=== PATIENT | male | born 1995 | race Two or more races ===

== ENCOUNTER 2020-08-29 07:41 | Emergency (ER) | payer MEDICAID ==
[~2020-08-29] VITALS: Ht 172.7 cm; Wt 70.0 kg
[2020-08-29 10:09] LABS: BASOPHILS % 0.2 % (0.0-2.0); EOSINOPHILS % 1.7 % (0.0-5.0); HEMATOCRIT. 33.8 % (42.0-52.0); HEMOGLOBIN. 11.2 g/dL (14.0-18.0); LYMPHOCYTES % 7.6 % (20.0-50.0); MEAN CORPUSCULAR HEMOGLOBIN 27.9 pg (28.0-32.0); MEAN CORPUSCULAR VOLUME 84.3 fL (80.0-94.0); MEAN PLATELET VOLUME 6.4 fl (7.4-10.4); MONOCYTES % 4.8 % (2.0-8.0); NEUTROPHILS % 85.7 % (40.0-76.0); PLATELET 669 x1000/uL (130-400); RED CELL DISTRIBUTION WIDTH 16.7 % (11.6-14.6)
[2020-08-29 10:18] LABS: CHLORIDE 95 mEq/L (98-107)
[2020-08-29 10:27] LABS: CREATINE KINASE 45 IU/L (39-308)
[2020-08-29] MEDS ORDERED: PIPERACILLIN/TAZ 3.375G PREMIX 50 ML IV ONE (10:45)
[2020-08-29] MEDS ORDERED: LEVETIRACETAM 500MG TABLET PO ONE (10:45)
[2020-08-29] MEDS ORDERED: IPRATROPIUM/ALBUTEROL 0.5-3(2.5)MG/3ML NEB HHN ONE (10:45)
[2020-08-29] MEDS ORDERED: SODIUM CHLORIDE 0.9% 500 ML IV ONE (12:30)
[2020-08-29 13:40] VITALS: BP 97/54
== END 2020-08-29 13:45 | disposition left against medical advice (07) ==
LOC: ER 07:51 → CANBEDREQ 13:45 → ER 13:45
DX: R56.9 Unspecified convulsions (principal); R09.02 Hypoxemia; E84.9 Cystic fibrosis, unspecified; K86.81 Exocrine pancreatic insufficiency; Z20.828 Contact with and (suspected) exposure to other viral communicable diseases
CPT/HCPCS: 36415; 71045; 80053; 82550; 82962; 83605; 85025; 87426; 96365; 99284; J2543; J7040; Z7610; 94640

== ENCOUNTER 2021-07-08 20:55 | Inpatient (IN) | payer MEDICAID, OTHER ==
[~2021-07-08] VITALS: Ht 153.9 cm; Wt 52.3 kg
[~2021-07-08 20:55] MED LIST: ALBU2.5V13 NEB; AMYL1CAP61 MT; AMYL1CAP61 PO; SODI4VIA IH
[2021-07-08] MEDS ORDERED: METHYLPREDNISOLONE SOD SUCC 125 MG/2 ML VIAL IV STA (21:25)
[2021-07-08] MEDS ORDERED: IPRATROPIUM BROMIDE (0.02%) 0.5MG/2.5ML NEB HHN STA (21:25)
[2021-07-08] MEDS ORDERED: SODIUM CHLORIDE 0.9% 1,000 ML IV ONE ×2 (21:30)
[2021-07-08] MEDS ORDERED: MAGNESIUM 2 G PREMIX 50 ML IV ONE (21:30)
[2021-07-08] MEDS: ALBUTEROL (0.083%) 2.5MG/3ML NEB HHN SCH (22:17)
[2021-07-08 22:35] LABS: BASOPHILS % 0.3 % (0.0-2.0); EOSINOPHILS % 0.1 % (0.0-5.0); HEMATOCRIT. 38.3 % (42.0-52.0); HEMOGLOBIN. 12.7 g/dL (14.0-18.0); LYMPHOCYTES % 7.9 % (20.0-50.0); MEAN CORPUSCULAR VOLUME 78.7 fL (80.0-94.0); MEAN PLATELET VOLUME 7.6 fl (7.4-10.4); MONOCYTES % 7.1 % (2.0-8.0); NEUTROPHILS % 84.6 % (40.0-76.0); PLATELET 796 x1000/uL (130-400); RED BLOOD CELL COUNT 4.86 mill/uL (4.7-6.1); RED CELL DISTRIBUTION WIDTH 16.2 % (11.6-14.6)
[2021-07-08] MEDS ORDERED: AZITHROMYCIN 500MG/250ML 250 ML IV ONE (22:45)
[2021-07-08] MEDS ORDERED: CEFTRIAXONE 1 G PREMIX 50 ML IV ONE (22:45)
[2021-07-08 23:10] LABS: CHLORIDE 84 mEq/L (98-107)
[2021-07-09] MEDS ORDERED: GUAIFENESIN 200MG/10ML SUGAR FREE UDC PO PRN (01:30)
[2021-07-09] MEDS ORDERED: ONDANSETRON HCL 4MG/2ML INJ IV PRN (01:30)
[2021-07-09] MEDS ORDERED: IPRATROPIUM/ALBUTEROL 0.5-3(2.5)MG/3ML NEB NEB PRN (01:30)
[2021-07-09] MEDS ORDERED: ACETAMINOPHEN 325MG TABLET PO PRN (01:30)
[2021-07-09] MEDS: SODIUM CHLORIDE 0.9% 1,000 ML IV SCH ×3 (02:07→21:30)
[2021-07-09] MEDS: IPRATROPIUM/ALBUTEROL 0.5-3(2.5)MG/3ML NEB HHN SCH ×4 (02:23→22:18)
[2021-07-09] MEDS ORDERED: MVI, ADULT NO.1 10 ML, FOLIC ACID 1 MG, THIAMINE HCL 100 MG in SODIUM CHLORIDE 0.9% 1,0... IV SCH (03:00)
[2021-07-09] MEDS ORDERED: POTASSIUM CHLORIDE INJ 40 MEQ in DEXT 5% WATER 250 ML IV SCH (03:00)
[2021-07-09] MEDS ORDERED: PROMETHAZINE/DEXTROMETHORPHAN 6.25-15MG/5ML BOTTLE 120ML PO PRN (03:15)
[2021-07-09 05:35] LABS: *AMPHETAMINES SCREEN URINE NEGATIVE (NEGATIVE); *BARBITURATES SCREEN URINE NEGATIVE (NEGATIVE); *BENZODIAZEPINES SCREEN URINE NEGATIVE (NEGATIVE); *COCAINE SCREEN URINE NEGATIVE (NEGATIVE)
[2021-07-09 05:36] LABS: CANNABINOID URINE SCREEN NEGATIVE (NEGATIVE); METHADONE URINE SCREEN NEGATIVE (NEGATIVE); OPIATES URINE SCREEN NEGATIVE (NEGATIVE); PHENCYCLIDINE URINE SCREEN NEGATIVE (NEGATIVE)
[2021-07-09] MEDS: LIPASE/PROTEASE/AMYLASE 4,200/14,200/24,600 UNITS CAP DR PO SCH ×3 (06:30→17:53)
[2021-07-09] MEDS ORDERED: LEVETIRACETAM 500MG PREMIX 100 ML IV SCH (09:00)
[2021-07-09] MEDS: GUAIFENESIN 200MG/10ML SUGAR FREE UDC PO PRN (09:31)
[2021-07-09] MEDS: LEVETIRACETAM 500MG TABLET PO SCH ×2 (09:31→21:19)
[2021-07-09] MEDS: GUAIFENESIN 600MG ER TABLET PO SCH ×2 (11:06→21:19)
[2021-07-09] MEDS: POTASSIUM CHLORIDE 20MEQ/PACKET PO SCH (11:06)
[2021-07-09] MEDS: PANTOPRAZOLE SODIUM 40 MG/VIAL IV SCH (11:06)
[2021-07-09] MEDS ORDERED: *TOBRAMYCIN PER PHARMACY XX SCH (12:00)
[2021-07-09] MEDS ORDERED: VANCOMYCIN 1250MG in DEXTROSE 5% WATER 250ML IV NR (15:00)
[2021-07-09] MEDS: ACETYLCYSTEINE 100MG/ML 10% VIAL 4ML INH SCH (16:28)
[2021-07-09] MEDS ORDERED: TOBRAMYCIN SULFATE 140 MG in SODIUM CHLORIDE 0.9% 100 ML IV NR (18:00)
[2021-07-09 18:18] VITALS: BP 95/62
[2021-07-09 20:00] VITALS: BP 100/51
[2021-07-09] MEDS: CEFEPIME 2,000 MG in DEXT 5% WATER 100 ML IV SCH (21:18)
[2021-07-09] MEDS: VANCOMYCIN 1 G PREMIX 200 ML IV SCH (23:27)
[2021-07-10] VITALS: BP 106/49
[2021-07-10] MEDS ORDERED: CEFTRIAXONE 1,000 MG in DEXTROSE 5% WATER 50 ML IV SCH (01:00)
[2021-07-10] MEDS ORDERED: AZITHROMYCIN 500 MG in DEXT 5% WATER 250 ML IV SCH (02:00)
[2021-07-10] MEDS: TOBRAMYCIN SULFATE 120 MG in SODIUM CHLORIDE 0.9% 100 ML IV SCH ×2 (02:51→10:02)
[2021-07-10] MEDS: IPRATROPIUM/ALBUTEROL 0.5-3(2.5)MG/3ML NEB HHN SCH ×5 (04:00→16:13)
[2021-07-10] MEDS: VANCOMYCIN 1 G PREMIX 200 ML IV SCH (06:17)
[2021-07-10 07:44] LABS: CHLORIDE 103 mEq/L (98-107)
[2021-07-10 07:51] LABS: PHOSPHORUS 2.7 mg/dL (2.5-4.9)
[2021-07-10 07:58] LABS: BASOPHILS % 0.2 % (0.0-2.0); HEMATOCRIT. 29.1 % (42.0-52.0); HEMOGLOBIN. 9.3 g/dL (14.0-18.0); LYMPHOCYTES % 19.3 % (20.0-50.0); MEAN CORPUSCULAR HEMOGLOBIN 26.4 pg (28.0-32.0); MEAN CORPUSCULAR VOLUME 82.2 fL (80.0-94.0); MEAN PLATELET VOLUME 6.8 fl (7.4-10.4); NEUTROPHILS % 72.5 % (40.0-76.0); PLATELET 711 x1000/uL (130-400); RED BLOOD CELL COUNT 3.54 mill/uL (4.7-6.1); RED CELL DISTRIBUTION WIDTH 16.2 % (11.6-14.6)
[2021-07-10 08:00] VITALS: BP 143/101
[2021-07-10] MEDS: LIPASE/PROTEASE/AMYLASE 4,200/14,200/24,600 UNITS CAP DR PO SCH ×3 (09:40→17:41)
[2021-07-10] MEDS: POTASSIUM CHLORIDE 20MEQ/PACKET PO SCH (09:40)
[2021-07-10] MEDS: CEFEPIME 2,000 MG in DEXT 5% WATER 100 ML IV SCH ×2 (09:40→21:40)
[2021-07-10] MEDS: LEVETIRACETAM 500MG TABLET PO SCH ×2 (09:40→21:38)
[2021-07-10] MEDS: PANTOPRAZOLE SODIUM 40 MG/VIAL IV SCH (09:41)
[2021-07-10] MEDS: SODIUM CHLORIDE 0.9% 1,000 ML IV SCH ×2 (09:41→17:42)
[2021-07-10] MEDS: GUAIFENESIN 600MG ER TABLET PO SCH ×2 (10:02→21:38)
[2021-07-10 10:17] LABS: BG BASE EXCESS 5.5 mmol/L (-2.0-2.0); BG CARBOXYHEMOGLOBIN 0.7 % (0.5-1.5); BG FRACTION INSPIRED OXYGEN 52; BG HCO3 ACT 33.5 mmol/L (22.0-26.0); BG METHEMOGLOBIN 0.3 % (0.0-1.5); BG OXYGEN SATURATION 76.8 % (92.0-98.5); BG PH 7.292 (7.350-7.450); BG PO2 46.6 mmHg (75.0-100.0); BG SAMPLE SITE RIGHT RADIAL; BG TOTAL HEMOGLOBIN 9.9 g/dL (12.0-18.0); BG VENT MODE NASAL CANNULA
[2021-07-10] MEDS: ACETYLCYSTEINE 100MG/ML 10% VIAL 4ML INH SCH ×4 (10:42→22:00)
[2021-07-10 11:00] VITALS: BP 156/104
[2021-07-10 12:09] LABS: BG BASE EXCESS 6.6 mmol/L (-2.0-2.0); BG CARBOXYHEMOGLOBIN 0.3 % (0.5-1.5); BG DEOXYHEMOGLOBIN 1.4 % (0.0-5.0); BG FRACTION INSPIRED OXYGEN 100; BG METHEMOGLOBIN 0.3 % (0.0-1.5); BG OXYGEN SATURATION 98.6 % (92.0-98.5); BG PCO2 66.4 mmHg (35.0-45.0); BG PH 7.327 (7.350-7.450); BG PO2 398.6 mmHg (75.0-100.0); BG SAMPLE SITE RIGHT BRACHIAL; BG TOTAL HEMOGLOBIN 9.8 g/dL (12.0-18.0); BG VENT MODE MASK - NRB
[2021-07-10] MEDS: VANCOMYCIN 750 MG PREMIX 150 ML IV SCH (15:07)
[2021-07-10 20:00] VITALS: BP 124/77
[2021-07-10] MEDS: LORAZEPAM 2MG/ML CPJ IV PRN (21:28)
[2021-07-10] MEDS: TOBRAMYCIN SULFATE 80 MG in SODIUM CHLORIDE 0.9% 100 ML IV SCH (21:40)
[2021-07-11] VITALS: BP 105/54
[2021-07-11] MEDS: IPRATROPIUM/ALBUTEROL 0.5-3(2.5)MG/3ML NEB HHN SCH ×5 (00:01→22:20)
[2021-07-11] MEDS: ACETYLCYSTEINE 100MG/ML 10% VIAL 4ML INH SCH ×2 (00:13→08:32)
[2021-07-11] MEDS: VANCOMYCIN 750 MG PREMIX 150 ML IV SCH ×3 (00:58→16:28)
[2021-07-11] MEDS: SODIUM CHLORIDE 0.9% 1,000 ML IV SCH ×2 (03:30→14:13)
[2021-07-11 04:00] VITALS: BP 135/60
[2021-07-11] MEDS: ACETAMINOPHEN 325MG TABLET PO PRN ×2 (06:10→10:22)
[2021-07-11 08:00] VITALS: BP 118/60
[2021-07-11] MEDS: GUAIFENESIN 600MG ER TABLET PO SCH ×2 (09:00→20:53)
[2021-07-11] MEDS: TOBRAMYCIN SULFATE 80 MG in SODIUM CHLORIDE 0.9% 100 ML IV SCH ×2 (09:00→22:30)
[2021-07-11] MEDS: POTASSIUM CHLORIDE 20MEQ/PACKET PO SCH (09:00)
[2021-07-11] MEDS: LIPASE/PROTEASE/AMYLASE 4,200/14,200/24,600 UNITS CAP DR PO SCH ×3 (10:19→17:07)
[2021-07-11] MEDS: CEFEPIME 2,000 MG in DEXT 5% WATER 100 ML IV SCH ×2 (10:20→20:54)
[2021-07-11] MEDS: LEVETIRACETAM 500MG TABLET PO SCH ×2 (10:20→20:53)
[2021-07-11] MEDS: GUAIFENESIN 200MG/10ML SUGAR FREE UDC PO PRN (10:21)
[2021-07-11] MEDS: FAMOTIDINE 20MG TABLET PO SCH ×2 (10:22→20:53)
[2021-07-11] MEDS: LORAZEPAM 2MG/ML CPJ IV PRN ×2 (10:24→22:30)
[2021-07-11 16:00] VITALS: BP 112/59
[2021-07-11 18:00] VITALS: BP 119/54
[2021-07-11 20:00] VITALS: BP 96/47
[2021-07-12] VITALS: BP 115/55
[2021-07-12] MEDS: IPRATROPIUM/ALBUTEROL 0.5-3(2.5)MG/3ML NEB HHN SCH ×4 (00:09→19:53)
[2021-07-12] MEDS: ACETYLCYSTEINE 100MG/ML 10% VIAL 4ML INH SCH (00:10)
[2021-07-12] MEDS: VANCOMYCIN 750 MG PREMIX 150 ML IV SCH ×3 (00:33→18:36)
[2021-07-12] MEDS: ACETAMINOPHEN 325MG TABLET PO PRN (00:45)
[2021-07-12 04:00] VITALS: BP 125/63
[2021-07-12 07:07] LABS: CHLORIDE 96 mEq/L (98-107)
[2021-07-12 07:16] LABS: TOBRAMYCIN RANDOM 1.1 ucg/mL
[2021-07-12 08:00] VITALS: BP 140/79
[2021-07-12] MEDS: GUAIFENESIN 600MG ER TABLET PO SCH ×2 (09:00→21:01)
[2021-07-12] MEDS: LIPASE/PROTEASE/AMYLASE 4,200/14,200/24,600 UNITS CAP DR PO SCH ×3 (10:12→18:26)
[2021-07-12] MEDS: FAMOTIDINE 20MG TABLET PO SCH ×2 (10:24→21:01)
[2021-07-12] MEDS: LEVETIRACETAM 500MG TABLET PO SCH ×2 (10:24→21:01)
[2021-07-12] MEDS: GUAIFENESIN 200MG/10ML SUGAR FREE UDC PO PRN (10:24)
[2021-07-12] MEDS: POTASSIUM CHLORIDE 20MEQ/PACKET PO SCH (10:24)
[2021-07-12 12:00] VITALS: BP_SYST 113; BP_SYST 138; BP_DIAS 59; BP_DIAS 68
[2021-07-12 16:00] VITALS: BP 113/59
[2021-07-12] MEDS: CEFEPIME 2,000 MG in DEXT 5% WATER 100 ML IV SCH ×2 (16:25→23:38)
[2021-07-12] MEDS: TOBRAMYCIN SULFATE 80 MG in SODIUM CHLORIDE 0.9% 100 ML IV SCH ×2 (18:26→21:02)
[2021-07-12 20:00] VITALS: BP 114/59
[2021-07-13] VITALS: BP 106/47
[2021-07-13] MEDS: IPRATROPIUM/ALBUTEROL 0.5-3(2.5)MG/3ML NEB HHN SCH ×6 (00:13→19:56)
[2021-07-13] MEDS: ACETYLCYSTEINE 100MG/ML 10% VIAL 4ML INH SCH ×4 (00:23→16:08)
[2021-07-13] MEDS: VANCOMYCIN 750 MG PREMIX 150 ML IV SCH ×3 (00:29→18:26)
[2021-07-13 04:00] VITALS: BP 119/53
[2021-07-13] MEDS: TOBRAMYCIN SULFATE 80 MG in SODIUM CHLORIDE 0.9% 100 ML IV SCH ×2 (05:06→16:57)
[2021-07-13] MEDS: POTASSIUM CHLORIDE 20MEQ/PACKET PO SCH (08:30)
[2021-07-13] MEDS: FAMOTIDINE 20MG TABLET PO SCH ×2 (08:30→20:26)
[2021-07-13] MEDS: LIPASE/PROTEASE/AMYLASE 4,200/14,200/24,600 UNITS CAP DR PO SCH ×3 (08:30→16:56)
[2021-07-13] MEDS: LEVETIRACETAM 500MG TABLET PO SCH ×2 (08:31→20:26)
[2021-07-13] MEDS: GUAIFENESIN 600MG ER TABLET PO SCH ×2 (08:31→20:01)
[2021-07-13 12:00] VITALS: BP 113/56
[2021-07-13] MEDS: CEFEPIME 2,000 MG in DEXT 5% WATER 100 ML IV SCH (12:26)
[2021-07-13 16:00] VITALS: BP 115/54
[2021-07-13 20:00] VITALS: BP 105/55
[2021-07-14] VITALS: BP 98/57
[2021-07-14] MEDS: TOBRAMYCIN SULFATE 80 MG in SODIUM CHLORIDE 0.9% 100 ML IV SCH ×3 (00:19→17:13)
[2021-07-14] MEDS: CEFEPIME 2,000 MG in DEXT 5% WATER 100 ML IV SCH ×4 (00:19→23:45)
[2021-07-14] MEDS: VANCOMYCIN 750 MG PREMIX 150 ML IV SCH ×3 (01:02→20:38)
[2021-07-14] MEDS: ACETAMINOPHEN 325MG TABLET PO PRN (03:23)
[2021-07-14 04:00] VITALS: BP 100/49
[2021-07-14] MEDS: IPRATROPIUM/ALBUTEROL 0.5-3(2.5)MG/3ML NEB HHN SCH ×3 (04:00→20:00)
[2021-07-14 05:36] LABS: CHLORIDE 95 mEq/L (98-107)
[2021-07-14 05:49] LABS: TOBRAMYCIN TROUGH 2.1 ucg/mL (<2.0)
[2021-07-14] MEDS: ACETYLCYSTEINE 100MG/ML 10% VIAL 4ML INH SCH ×2 (06:00→14:00)
[2021-07-14 08:00] VITALS: BP 90/56
[2021-07-14] MEDS: FAMOTIDINE 20MG TABLET PO SCH ×2 (08:06→20:19)
[2021-07-14] MEDS: POTASSIUM CHLORIDE 20MEQ/PACKET PO SCH (08:06)
[2021-07-14] MEDS: LEVETIRACETAM 500MG TABLET PO SCH ×2 (08:06→20:19)
[2021-07-14] MEDS: LIPASE/PROTEASE/AMYLASE 4,200/14,200/24,600 UNITS CAP DR PO SCH ×3 (08:06→16:59)
[2021-07-14] MEDS: GUAIFENESIN 600MG ER TABLET PO SCH (09:00)
[2021-07-14 12:00] VITALS: BP 77/44
[2021-07-14] MEDS: DIPHENHYDRAMINE 50MG/ML VIAL IV PRN ×2 (13:16→23:13)
[2021-07-14 16:00] VITALS: BP 133/97
[2021-07-14] MEDS ORDERED: TOBRAMYCIN SULFATE 80 MG in SODIUM CHLORIDE 0.9% 100 ML IV SCH ×2 (16:30→19:00)
[2021-07-14 20:00] VITALS: BP 108/52
[2021-07-14] MEDS ORDERED: ALBUTEROL (0.083%) 2.5MG/3ML NEB ONE (22:02)
[2021-07-15] VITALS: BP 96/48
[2021-07-15] MEDS: TOBRAMYCIN SULFATE 80 MG in SODIUM CHLORIDE 0.9% 100 ML IV SCH ×3 (01:16→16:44)
[2021-07-15] MEDS ORDERED: ALBUTEROL (0.083%) 2.5MG/3ML NEB ONE (02:53)
[2021-07-15] MEDS: IPRATROPIUM/ALBUTEROL 0.5-3(2.5)MG/3ML NEB HHN SCH ×4 (03:00→11:19)
[2021-07-15] MEDS: VANCOMYCIN 750 MG PREMIX 150 ML IV SCH ×3 (04:39→16:00)
[2021-07-15] MEDS: LIPASE/PROTEASE/AMYLASE 4,200/14,200/24,600 UNITS CAP DR PO SCH ×2 (09:04→12:38)
[2021-07-15] MEDS: LEVETIRACETAM 500MG TABLET PO SCH (09:04)
[2021-07-15] MEDS: POTASSIUM CHLORIDE 20MEQ/PACKET PO SCH (09:04)
[2021-07-15] MEDS: FAMOTIDINE 20MG TABLET PO SCH (09:04)
[2021-07-15] MEDS: DIPHENHYDRAMINE 50MG/ML VIAL IV PRN (12:56)
[2021-07-15 15:40] VITALS: BP 104/48
[2021-07-15 16:00] VITALS: BP 110/52
== END 2021-07-15 17:36 | disposition home or self-care (01) | DRG 720 ==
LOC: ER 20:55 → MICUSO 23:10 → 8WST 07-09 13:00
PROVIDERS: ADMIT Internal Medicine; ATTEND Internal Medicine
DX: A41.9 Sepsis, unspecified organism (principal); J96.21 Acute and chronic respiratory failure with hypoxia; E43 Unspecified severe protein-calorie malnutrition; E84.9 Cystic fibrosis, unspecified; E87.8 Other disorders of electrolyte and fluid balance, not elsewhere classified; J84.9 Interstitial pulmonary disease, unspecified; Z20.822 Contact with and (suspected) exposure to COVID-19; E87.6 Hypokalemia; E87.1 Hypo-osmolality and hyponatremia; G40.909 Epilepsy, unspecified, not intractable, without status epilepticus; R65.20 Severe sepsis without septic shock; Z87.820 Personal history of traumatic brain injury; Z68.22 Body mass index [BMI] 22.0-22.9, adult
CPT/HCPCS: 36415; 36600; 71045; 80048; 80053; 80200; 80202; 80305; 82375; 82805; 83605; 83735; 83880; 84100; 84484; 85025; 87070; 87426; 93005; 94640; 94667; 97161; 99291; C1893; C9113; J0456; J0692; J0696; J1200; J1953; J2060; J2930; J3260; J3370; J3411; J3475; J3480; J3490; J7030; J7050; J7060; J7608

== ENCOUNTER 2021-08-27 17:27 | Inpatient (IN) | payer MEDICAID, OTHER ==
[~2021-08-27] VITALS: Ht 172.7 cm; Wt 52.2 kg
[2021-08-27] MEDS ORDERED: LEVETIRACETAM 500MG PREMIX 100 ML IV ONE (18:00)
[2021-08-27 18:46] LABS: HEMATOCRIT. 30.1 % (42.0-52.0); HEMOGLOBIN. 9.9 g/dL (14.0-18.0); MEAN CORPUSCULAR HEMOGLOBIN 26.4 pg (28.0-32.0); MEAN CORPUSCULAR VOLUME 80.3 fL (80.0-94.0); MEAN PLATELET VOLUME 6.5 fl (7.4-10.4); PLATELET 623 x1000/uL (130-400); RED BLOOD CELL COUNT 3.74 mill/uL (4.7-6.1); RED CELL DISTRIBUTION WIDTH 17.3 % (11.6-14.6)
[2021-08-27 18:49] LABS: CHLORIDE 99 mEq/L (98-107)
[2021-08-27 18:53] LABS: ETHANOL BLOOD < 10 mg/dL
[2021-08-27 19:53] LABS: PLATELET ESTIMATE INCREASED
[2021-08-27 23:26] LABS: CLARITY URINE CLEAR (CLEAR); COLOR URINE YELLOW (YELLOW); KETONES URINE NEGATIVE (NEGATIVE); LEUKOCYTE ESTERASE URINE NEGATIVE (NEGATIVE); NITRITE URINE NEGATIVE (NEGATIVE); OCCULT BLOOD URINE NEGATIVE (NEGATIVE); PH URINE 5.5 (4.5-8.0); PROTEIN URINE TRACE (NEGATIVE); SPECIFIC GRAVITY URINE 1.021 (1.005-1.030)
[2021-08-27 23:40] LABS: *AMPHETAMINES SCREEN URINE NEGATIVE (NEGATIVE)
[2021-08-27 23:41] LABS: *BARBITURATES SCREEN URINE NEGATIVE (NEGATIVE); *BENZODIAZEPINES SCREEN URINE PRESUMTIVE POSITIVE (NEGATIVE); *COCAINE SCREEN URINE NEGATIVE (NEGATIVE); CANNABINOID URINE SCREEN PRESUMTIVE POSITIVE (NEGATIVE); METHADONE URINE SCREEN NEGATIVE (NEGATIVE); OPIATES URINE SCREEN PRESUMTIVE POSITIVE (NEGATIVE); PHENCYCLIDINE URINE SCREEN NEGATIVE (NEGATIVE)
[2021-08-28 10:10] VITALS: BP 113/62
[2021-08-28] MEDS ORDERED: LEVETIRACETAM 500 MG in SODIUM CHLORIDE 0.9% 100 ML IV SCH (10:30)
[2021-08-28] MEDS ORDERED: KEPP500 PO (10:37)
[2021-08-28] MEDS: ALBUTEROL (0.083%) 2.5MG/3ML NEB HHN SCH ×3 (11:47→21:34)
[2021-08-28 12:00] VITALS: BP 103/56
[2021-08-28] MEDS: LEVETIRACETAM 500MG PREMIX 100 ML IV SCH ×2 (12:35→20:08)
[2021-08-28] MEDS: SODIUM CHLORIDE 0.45% 1,000 ML IV SCH (12:35)
[2021-08-28] MEDS: LIPASE/PROTEASE/AMYLASE 4,200/14,200/24,600 UNITS CAP DR PO SCH ×2 (13:56→17:01)
[2021-08-28] MEDS ORDERED: CEFTRIAXONE 1 G PREMIX 50 ML IV SCH (15:30)
[2021-08-28 16:00] VITALS: BP 96/58
[2021-08-28 16:02] LABS: CHLORIDE 99 mEq/L (98-107)
[2021-08-28] MEDS ORDERED: CEFTRIAXONE 1,000 MG in DEXTROSE 5% WATER 50 ML IV SCH (16:30)
[2021-08-28] MEDS ORDERED: AZITHROMYCIN 500 MG in DEXT 5% WATER 250 ML IV SCH (17:00)
[2021-08-28] MEDS ORDERED: SODIUM CHLORIDE 10% FOR INH 15ML VIAL NEB INH NR (17:00)
[2021-08-28 19:25] LABS: BASOPHILS % 0.7 % (0.0-2.0); EOSINOPHILS % 0.3 % (0.0-5.0); HEMATOCRIT. 30.1 % (42.0-52.0); HEMOGLOBIN. 9.6 g/dL (14.0-18.0); LYMPHOCYTES % 8.8 % (20.0-50.0); MEAN CORPUSCULAR HEMOGLOBIN 25.8 pg (28.0-32.0); MEAN CORPUSCULAR VOLUME 80.6 fL (80.0-94.0); MEAN PLATELET VOLUME 7.2 fl (7.4-10.4); NEUTROPHILS % 82.2 % (40.0-76.0); PLATELET 626 x1000/uL (130-400); RED BLOOD CELL COUNT 3.73 mill/uL (4.7-6.1); RED CELL DISTRIBUTION WIDTH 17.8 % (11.6-14.6)
[2021-08-28 20:00] VITALS: BP 107/56
[2021-08-29] VITALS: BP 103/55
[2021-08-29 04:00] VITALS: BP 94/56
[2021-08-29] MEDS: ALBUTEROL (0.083%) 2.5MG/3ML NEB HHN SCH ×4 (04:00→11:38)
[2021-08-29] MEDS: SODIUM CHLORIDE 0.45% 1,000 ML IV SCH (06:45)
[2021-08-29 08:00] VITALS: BP 95/47
[2021-08-29] MEDS: LEVETIRACETAM 500MG PREMIX 100 ML IV SCH (08:24)
[2021-08-29] MEDS: LIPASE/PROTEASE/AMYLASE 4,200/14,200/24,600 UNITS CAP DR PO SCH ×2 (08:25→13:05)
[2021-08-29] MEDS ORDERED: KEPP500 PO (10:55)
[2021-08-29 12:00] VITALS: BP 95/53
[2021-08-29 13:02] LABS: BASOPHILS % 0.6 % (0.0-2.0); EOSINOPHILS % 1.7 % (0.0-5.0); HEMOGLOBIN. 10.4 g/dL (14.0-18.0); LYMPHOCYTES % 18.6 % (20.0-50.0); MEAN CORPUSCULAR HEMOGLOBIN 26.3 pg (28.0-32.0); MEAN CORPUSCULAR VOLUME 80.6 fL (80.0-94.0); MEAN PLATELET VOLUME 6.7 fl (7.4-10.4); MONOCYTES % 9.8 % (2.0-8.0); NEUTROPHILS % 69.3 % (40.0-76.0); PLATELET 634 x1000/uL (130-400); RED BLOOD CELL COUNT 3.97 mill/uL (4.7-6.1); RED CELL DISTRIBUTION WIDTH 17.4 % (11.6-14.6)
[2021-08-29 13:07] LABS: CHLORIDE 99 mEq/L (98-107)
[2021-08-29 13:21] VITALS: BP 95/53
== END 2021-08-29 15:27 | disposition home or self-care (01) | DRG 720 ==
LOC: ER 17:27 → MICUSO 23:14 → 8WST 08-28 07:42
PROVIDERS: ADMIT Family Medicine; ATTEND Family Medicine
DX: A41.9 Sepsis, unspecified organism (principal); J96.10 Chronic respiratory failure, unspecified whether with hypoxia or hypercapnia; E84.9 Cystic fibrosis, unspecified; J18.9 Pneumonia, unspecified organism; E44.0 Moderate protein-calorie malnutrition; G40.409 Other generalized epilepsy and epileptic syndromes, not intractable, without status epilepticus; D63.8 Anemia in other chronic diseases classified elsewhere; F12.10 Cannabis abuse, uncomplicated; D75.839 Thrombocytosis, unspecified; Z79.899 Other long term (current) drug therapy; Z91.14 Patient's other noncompliance with medication regimen; Z68.1 Body mass index [BMI] 19.9 or less, adult
CPT/HCPCS: 36415; 71045; 80053; 80061; 80305; 80320; 81003; 82542; 83036; 85025; 87070; 93005; 94640; 99285; J0456; J0696; J1953; J7060; J7131; G0480

== ENCOUNTER 2021-08-30 10:55 | Inpatient (IN) | payer MEDICAID, OTHER ==
[~2021-08-30] VITALS: Ht 182.9 cm; Wt 56.4 kg
[~2021-08-30 10:55] MED LIST changes: +KEPP500 PO
[2021-08-30] MEDS ORDERED: LEVETIRACETAM 500MG PREMIX 100 ML IV ONE (11:15)
[2021-08-30] MEDS ORDERED: LORAZEPAM 2MG/ML CPJ IV ONE (11:15)
[2021-08-30] MEDS ORDERED: SODIUM CHLORIDE 0.9% 1,000 ML IV ONE ×2 (11:15→15:30)
[2021-08-30 12:03] LABS: EOSINOPHILS % 3.7 % (0.0-5.0); HEMATOCRIT. 32.6 % (42.0-52.0); HEMOGLOBIN. 10.5 g/dL (14.0-18.0); LYMPHOCYTES % 22.1 % (20.0-50.0); MEAN CORPUSCULAR HEMOGLOBIN 26.1 pg (28.0-32.0); MEAN CORPUSCULAR VOLUME 80.7 fL (80.0-94.0); MONOCYTES % 10.3 % (2.0-8.0); NEUTROPHILS % 62.9 % (40.0-76.0); PLATELET 669 x1000/uL (130-400); RED BLOOD CELL COUNT 4.04 mill/uL (4.7-6.1); RED CELL DISTRIBUTION WIDTH 17.7 % (11.6-14.6)
[2021-08-30 12:12] LABS: CHLORIDE 97 mEq/L (98-107)
[2021-08-30 12:16] LABS: ETHANOL BLOOD < 10 mg/dL
[2021-08-30 14:50] LABS: CLARITY URINE CLEAR (CLEAR); COLOR URINE YELLOW (YELLOW); KETONES URINE NEGATIVE (NEGATIVE); LEUKOCYTE ESTERASE URINE NEGATIVE (NEGATIVE); NITRITE URINE NEGATIVE (NEGATIVE); OCCULT BLOOD URINE NEGATIVE (NEGATIVE); PROTEIN URINE NEGATIVE (NEGATIVE); SPECIFIC GRAVITY URINE 1.011 (1.005-1.030); UROBILINOGEN URINE 0.2 E.U./dL (0.2-1.0)
[2021-08-30 15:10] LABS: *AMPHETAMINES SCREEN URINE NEGATIVE (NEGATIVE); *BARBITURATES SCREEN URINE NEGATIVE (NEGATIVE); *BENZODIAZEPINES SCREEN URINE NEGATIVE (NEGATIVE); *COCAINE SCREEN URINE NEGATIVE (NEGATIVE); METHADONE URINE SCREEN NEGATIVE (NEGATIVE); OPIATES URINE SCREEN NEGATIVE (NEGATIVE)
[2021-08-30 15:11] LABS: CANNABINOID URINE SCREEN NEGATIVE (NEGATIVE); PHENCYCLIDINE URINE SCREEN NEGATIVE (NEGATIVE)
[2021-08-30] MEDS ORDERED: ACETAMINOPHEN 325MG TABLET PO PRN (18:30)
[2021-08-30] MEDS ORDERED: DOCUSATE SODIUM 100MG CAPSULE PO PRN (18:30)
[2021-08-30] MEDS ORDERED: GUAIFENESIN 200MG/10ML SUGAR FREE UDC PO PRN (18:30)
[2021-08-30] MEDS ORDERED: CLONIDINE 0.1MG TABLET PO PRN (18:30)
[2021-08-30] MEDS ORDERED: MAGNESIUM/ALUMINUM HYDROXIDE/SIMETHICONE 30ML UDC PO PRN (18:30)
[2021-08-30] MEDS ORDERED: ONDANSETRON HCL 4MG/2ML INJ IV PRN (18:30)
[2021-08-30] MEDS: LORAZEPAM 2MG/ML CPJ IV PRN ×2 (18:39→22:51)
[2021-08-30 19:00] VITALS: BP 118/78
[2021-08-30] MEDS: LEVETIRACETAM 500MG PREMIX 100 ML IV SCH (19:59)
[2021-08-30] MEDS ORDERED: IPRATROPIUM/ALBUTEROL 0.5-3(2.5)MG/3ML NEB HHN PRN (21:30)
[2021-08-30] MEDS: SODIUM CHLORIDE 0.45% 1,000 ML IV SCH (22:17)
[2021-08-31] VITALS (14 sets, daily range): BP systolic 82–108; BP diastolic 41–67
[2021-08-31] MEDS: IPRATROPIUM/ALBUTEROL 0.5-3(2.5)MG/3ML NEB HHN SCH ×5 (01:42→20:48)
[2021-08-31] MEDS: LORAZEPAM 2MG/ML CPJ IV PRN ×3 (03:18→18:00)
[2021-08-31 05:15] LABS: CHLORIDE 99 mEq/L (98-107)
[2021-08-31 07:04] LABS: BASOPHILS % 0.9 % (0.0-2.0); EOSINOPHILS % 4.5 % (0.0-5.0); HEMATOCRIT. 31.2 % (42.0-52.0); HEMOGLOBIN. 10.1 g/dL (14.0-18.0); LYMPHOCYTES % 24.6 % (20.0-50.0); MEAN CORPUSCULAR HEMOGLOBIN 26.3 pg (28.0-32.0); MEAN CORPUSCULAR VOLUME 81.4 fL (80.0-94.0); MEAN PLATELET VOLUME 6.7 fl (7.4-10.4); MONOCYTES % 6.8 % (2.0-8.0); NEUTROPHILS % 63.2 % (40.0-76.0); PLATELET 651 x1000/uL (130-400); RED BLOOD CELL COUNT 3.83 mill/uL (4.7-6.1); RED CELL DISTRIBUTION WIDTH 17.1 % (11.6-14.6)
[2021-08-31] MEDS: SODIUM CHLORIDE 0.45% 1,000 ML IV SCH (07:44)
[2021-08-31] MEDS: LEVETIRACETAM 500MG PREMIX 100 ML IV SCH (09:00)
[2021-08-31] MEDS: LEVETIRACETAM 1,500 MG in SODIUM CHLORIDE 0.9% 100 ML IV SCH ×2 (15:19→22:30)
[2021-08-31] MEDS: PANTOPRAZOLE SODIUM 40 MG/VIAL IV SCH (16:42)
[2021-08-31] MEDS ORDERED: SODIUM CHLORIDE 0.9% IV NR ×2 (19:30→21:00)
[2021-08-31] MEDS ORDERED: PHENYTOIN SODIUM IV NR ×2 (19:30→21:00)
[2021-08-31] MEDS ORDERED: FOLIC ACID 1 MG, THIAMINE HCL 100 MG, MVI, ADULT NO.1 10 ML in DEXTROSE 5% WATER 1,000 ML IV ONE (21:30)
[2021-09-01] VITALS (50 sets, daily range): BP systolic 33–104; BP diastolic 18–68
[2021-09-01] MEDS: IPRATROPIUM/ALBUTEROL 0.5-3(2.5)MG/3ML NEB HHN SCH ×6 (00:17→21:06)
[2021-09-01] MEDS: ACETYLCYSTEINE 100MG/ML 10% VIAL 4ML INH SCH ×4 (00:17→15:44)
[2021-09-01] MEDS: LORAZEPAM 2MG/ML CPJ IV PRN ×2 (01:19→10:00)
[2021-09-01] MEDS: PHENYTOIN SODIUM 100MG/2ML VIAL IV SCH ×3 (06:25→21:41)
[2021-09-01] MEDS ORDERED: SODIUM CHLORIDE 0.9% 500 ML IV SCH (08:00)
[2021-09-01] MEDS: SODIUM CHLORIDE 0.45% 1,000 ML IV SCH (08:12)
[2021-09-01] MEDS: LEVETIRACETAM 1,500 MG in SODIUM CHLORIDE 0.9% 100 ML IV SCH ×2 (08:13→21:30)
[2021-09-01] MEDS: PANTOPRAZOLE SODIUM 40 MG/VIAL IV SCH (08:14)
[2021-09-01 12:35] LABS: BG BASE EXCESS 4.6 mmol/L (-2.0-2.0); BG CARBOXYHEMOGLOBIN 0.2 % (0.5-1.5); BG DEOXYHEMOGLOBIN 9.7 % (0.0-5.0); BG FRACTION INSPIRED OXYGEN 44; BG HCO3 ACT 31.2 mmol/L (22.0-26.0); BG METHEMOGLOBIN 0.3 % (0.0-1.5); BG OXYGEN SATURATION 90.3 % (92.0-98.5); BG OXYHEMOGLOBIN 89.8 % (94.0-97.0); BG PCO2 57.4 mmHg (35.0-45.0); BG PH 7.353 (7.350-7.450); BG PO2 62.6 mmHg (75.0-100.0); BG SAMPLE SITE RIGHT BRACHIAL; BG TOTAL HEMOGLOBIN 9.8 g/dL (12.0-18.0); BG VENT MODE NASAL CANNULA
[2021-09-01 13:25] LABS: INR 1.1; PROTHROMBIN TIME 11.6 sec (9.6-11.0)
[2021-09-01 14:35] LABS: CREATINE KINASE 874 IU/L (39-308)
[2021-09-01] MEDS: ZOLPIDEM TARTRATE 5MG TABLET PO PRN (21:37)
[2021-09-02] VITALS (35 sets, daily range): BP systolic 69–122; BP diastolic 28–69
[2021-09-02] MEDS: IPRATROPIUM/ALBUTEROL 0.5-3(2.5)MG/3ML NEB HHN SCH ×6 (01:08→21:23)
[2021-09-02] MEDS: SODIUM CHLORIDE 0.45% 1,000 ML IV SCH ×3 (04:30→21:32)
[2021-09-02] MEDS: PHENYTOIN SODIUM 100MG/2ML VIAL IV SCH ×2 (06:28→13:29)
[2021-09-02] MEDS: ACETYLCYSTEINE 100MG/ML 10% VIAL 4ML INH SCH ×3 (08:54→21:37)
[2021-09-02] MEDS: LEVETIRACETAM 1,500 MG in SODIUM CHLORIDE 0.9% 100 ML IV SCH (09:34)
[2021-09-02] MEDS: PANTOPRAZOLE SODIUM 40 MG/VIAL IV SCH (09:34)
[2021-09-02] MEDS: MIDODRINE HCL 5MG TABLET PO SCH ×2 (15:13→20:00)
[2021-09-02] MEDS ORDERED: PHENYTOIN SODIUM EXTENDED 100MG CAPSULE PO SCH (21:00)
[2021-09-02] MEDS: LEVETIRACETAM 500MG TABLET PO SCH (21:31)
[2021-09-02] MEDS: ZOLPIDEM TARTRATE 5MG TABLET PO PRN (21:32)
[2021-09-03] VITALS: BP 88/44
[2021-09-03] MEDS: IPRATROPIUM/ALBUTEROL 0.5-3(2.5)MG/3ML NEB HHN SCH ×3 (01:05→08:33)
[2021-09-03 04:00] VITALS: BP 95/42
[2021-09-03 08:00] VITALS: BP 92/40
[2021-09-03] MEDS: ACETYLCYSTEINE 100MG/ML 10% VIAL 4ML INH SCH (08:33)
[2021-09-03] MEDS: PANTOPRAZOLE SODIUM 40 MG/VIAL IV SCH (09:27)
[2021-09-03] MEDS: MIDODRINE HCL 5MG TABLET PO SCH (09:27)
[2021-09-03] MEDS: LEVETIRACETAM 500MG TABLET PO SCH (09:27)
[2021-09-03] MEDS: SODIUM CHLORIDE 0.45% 1,000 ML IV SCH (09:28)
[2021-09-03 11:10] VITALS: BP 99/35
[2021-09-03 12:00] VITALS: BP 99/35
== END 2021-09-03 12:53 | disposition home or self-care (01) | DRG 53 ==
LOC: ER 10:55 → 6WST 16:04 → ENRESERV 16:55 → 6WST 20:00 → MICUNO 08-31 17:31 → 7EST 09-02 18:10
PROVIDERS: ADMIT Hospitalist; ATTEND Hospitalist
PROC: 4A10X4Z Monitoring of Central Nervous Electrical Activity, External Approach (ICD-10-PCS; principal; 2021-08-30)
DX: G40.901 Epilepsy, unspecified, not intractable, with status epilepticus (principal); J96.10 Chronic respiratory failure, unspecified whether with hypoxia or hypercapnia; E84.9 Cystic fibrosis, unspecified; D64.9 Anemia, unspecified; Z79.899 Other long term (current) drug therapy; Z87.820 Personal history of traumatic brain injury; Z99.81 Dependence on supplemental oxygen
CPT/HCPCS: 36415; 36600; 71045; 80053; 80185; 80305; 80320; 81003; 82375; 82550; 82805; 82962; 83735; 85025; 94640; 95816; 97162; 99285; C9113; J1165; J1953; J2060; J3411; J3490; J7030; J7040; J7050; J7070; J7608; G0480

== ENCOUNTER 2021-11-19 16:38 | Inpatient (IN) | payer MEDICAID ==
[~2021-11-19] VITALS: Ht 177.8 cm; Wt 51.4 kg
[2021-11-19] MEDS ORDERED: METHYLPREDNISOLONE SOD SUCC 125 MG/2 ML VIAL IV STA (17:00)
[2021-11-19] MEDS ORDERED: IPRATROPIUM BROMIDE (0.02%) 0.5MG/2.5ML NEB HHN STA (17:00)
[2021-11-19] MEDS ORDERED: SODIUM CHLORIDE 0.9% 1,000 ML IV ONE (17:00)
[2021-11-19] MEDS ORDERED: ALBUTEROL (0.083%) 2.5MG/3ML NEB HHN STA (17:00)
[2021-11-19 17:39] LABS: BASOPHILS % 0.4 % (0.0-2.0); EOSINOPHILS % 1.1 % (0.0-5.0); HEMATOCRIT. 33.4 % (42.0-52.0); HEMOGLOBIN. 10.5 g/dL (14.0-18.0); LYMPHOCYTES % 9.6 % (20.0-50.0); MEAN CORPUSCULAR HEMOGLOBIN 24.9 pg (28.0-32.0); MEAN CORPUSCULAR VOLUME 79.6 fL (80.0-94.0); MEAN PLATELET VOLUME 7.1 fl (7.4-10.4); MONOCYTES % 9.9 % (2.0-8.0); PLATELET 568 x1000/uL (130-400); RED CELL DISTRIBUTION WIDTH 16.3 % (11.6-14.6)
[2021-11-19 17:42] LABS: CLARITY URINE CLEAR (CLEAR); COLOR URINE DARK YELLOW (YELLOW); KETONES URINE NEGATIVE (NEGATIVE); LEUKOCYTE ESTERASE URINE NEGATIVE (NEGATIVE); NITRITE URINE NEGATIVE (NEGATIVE); OCCULT BLOOD URINE NEGATIVE (NEGATIVE); PH URINE 5.5 (4.5-8.0); PROTEIN URINE TRACE (NEGATIVE); SPECIFIC GRAVITY URINE 1.023 (1.005-1.030)
[2021-11-19 17:45] LABS: CHLORIDE 95 mEq/L (98-107)
[2021-11-19] MEDS ORDERED: VANCOMYCIN 1G PREMIX 200 ML IV SCH (18:30)
[2021-11-19] MEDS ORDERED: TOBRAMYCIN SULFATE 80MG/2ML 30ML INH SCH (20:00)
[2021-11-19] MEDS ORDERED: LORAZEPAM 2MG/ML CPJ IV PRN (20:00)
[2021-11-19] MEDS ORDERED: HYDROCODONE/ACETAMINOPHEN 5/325MG TABLET PO PRN (20:00)
[2021-11-19] MEDS ORDERED: CLONIDINE 0.1MG TABLET PO PRN (20:00)
[2021-11-19] MEDS ORDERED: MAGNESIUM/ALUMINUM HYDROXIDE/SIMETHICONE 30ML UDC PO PRN (20:00)
[2021-11-19] MEDS ORDERED: HYDRALAZINE 20MG/ML VIAL IV PRN (20:00)
[2021-11-19] MEDS ORDERED: DOCUSATE SODIUM 100MG CAPSULE PO PRN (20:00)
[2021-11-19] MEDS ORDERED: ACETAMINOPHEN 325MG TABLET PO PRN (20:00)
[2021-11-19] MEDS ORDERED: IPRATROPIUM/ALBUTEROL 0.5-3(2.5)MG/3ML NEB HHN PRN (20:00)
[2021-11-19] MEDS ORDERED: ONDANSETRON HCL 4MG/2ML INJ IV PRN (20:00)
[2021-11-19] MEDS ORDERED: CEFEPIME 1,000 MG in DEXTROSE 5% WATER 50 ML IV SCH (20:00)
[2021-11-19 20:46] LABS: *AMPHETAMINES SCREEN URINE PRESUMTIVE POSITIVE (NEGATIVE); *BARBITURATES SCREEN URINE NEGATIVE (NEGATIVE); *BENZODIAZEPINES SCREEN URINE NEGATIVE (NEGATIVE); METHADONE URINE SCREEN NEGATIVE (NEGATIVE); OPIATES URINE SCREEN NEGATIVE (NEGATIVE)
[2021-11-19 20:47] LABS: *COCAINE SCREEN URINE NEGATIVE (NEGATIVE); CANNABINOID URINE SCREEN NEGATIVE (NEGATIVE); PHENCYCLIDINE URINE SCREEN NEGATIVE (NEGATIVE)
[2021-11-19] MEDS: SODIUM CHLORIDE 0.9% 1,000 ML IV SCH (21:00)
[2021-11-19] MEDS ORDERED: ENOXAPARIN 40MG/0.4ML SYR SUBCUT SCH (21:00)
[2021-11-19 23:00] VITALS: BP 97/48
[2021-11-20] MEDS: SODIUM CHLORIDE 0.9% 1,000 ML IV SCH ×2 (04:04→18:26)
[2021-11-20] MEDS: GUAIFENESIN 200MG/10ML SUGAR FREE UDC PO PRN ×4 (06:24→18:26)
[2021-11-20] MEDS: SODIUM CHLORIDE 0.9% INJ 3ML FLUSH IVF SCH ×4 (06:27→20:39)
[2021-11-20 08:00] VITALS: BP 87/51
[2021-11-20 08:39] LABS: HEMATOCRIT. 27.5 % (42.0-52.0); MEAN CORPUSCULAR HEMOGLOBIN 26.3 pg (28.0-32.0); MEAN CORPUSCULAR VOLUME 80.4 fL (80.0-94.0); MEAN PLATELET VOLUME 6.9 fl (7.4-10.4); PLATELET 585 x1000/uL (130-400); RED BLOOD CELL COUNT 3.41 mill/uL (4.7-6.1); RED CELL DISTRIBUTION WIDTH 15.8 % (11.6-14.6)
[2021-11-20] MEDS: LEVETIRACETAM 500MG TABLET PO SCH ×2 (08:47→20:39)
[2021-11-20 08:51] LABS: CHLORIDE 102 mEq/L (98-107)
[2021-11-20 09:00] VITALS: BP 92/50
[2021-11-20] MEDS ORDERED: CEFEPIME 1,000 MG in DEXTROSE 5% WATER 50 ML IV SCH (09:00)
[2021-11-20] MEDS: CEFEPIME 1,000 MG in DEXTROSE 5% WATER 50 ML IV SCH (11:48)
[2021-11-20 12:00] VITALS: BP 91/51
[2021-11-20 12:43] LABS: PLATELET ESTIMATE INCREASED
[2021-11-20] MEDS ORDERED: NALOXONE HCL 0.4MG/ML VIAL IV PRN (14:00)
[2021-11-20] MEDS: ENOXAPARIN 30MG/0.3ML SYR SUBCUT SCH (14:07)
[2021-11-20 15:40] LABS: BG CARBOXYHEMOGLOBIN 0.4 % (0.5-1.5); BG DEOXYHEMOGLOBIN 8.7 % (0.0-5.0); BG HCO3 ACT 31.5 mmol/L (22.0-26.0); BG METHEMOGLOBIN 0.3 % (0.0-1.5); BG OXYGEN SATURATION 91.2 % (92.0-98.5); BG OXYHEMOGLOBIN 90.6 % (94.0-97.0); BG PCO2 57.8 mmHg (35.0-45.0); BG PH 7.354 (7.350-7.450); BG PO2 66.9 mmHg (75.0-100.0); BG SAMPLE SITE RIGHT RADIAL; BG TOTAL HEMOGLOBIN 9.3 g/dL (12.0-18.0); BG VENT MODE NASAL CANNULA
[2021-11-20] MEDS: IPRATROPIUM/ALBUTEROL 0.5-3(2.5)MG/3ML NEB HHN SCH ×2 (15:59→21:40)
[2021-11-20 16:00] VITALS: BP 94/55
[2021-11-20 20:00] VITALS: BP 100/56
[2021-11-21] MEDS: CEFEPIME 1,000 MG in DEXTROSE 5% WATER 50 ML IV SCH ×3 (00:37→23:50)
[2021-11-21] MEDS: SODIUM CHLORIDE 0.9% 1,000 ML IV SCH ×3 (00:37→21:29)
[2021-11-21] MEDS: ACETYLCYSTEINE 100MG/ML 10% VIAL 4ML INH SCH ×3 (01:30→16:25)
[2021-11-21] MEDS: IPRATROPIUM/ALBUTEROL 0.5-3(2.5)MG/3ML NEB HHN SCH ×6 (01:30→22:14)
[2021-11-21 04:00] VITALS: BP 122/63
[2021-11-21] MEDS: SODIUM CHLORIDE 0.9% INJ 3ML FLUSH IVF SCH ×3 (05:05→21:30)
[2021-11-21 08:00] VITALS: BP 100/53
[2021-11-21] MEDS: LEVETIRACETAM 500MG TABLET PO SCH ×2 (09:18→21:30)
[2021-11-21 12:00] VITALS: BP 96/62
[2021-11-21] MEDS: GUAIFENESIN 200MG/10ML SUGAR FREE UDC PO PRN ×2 (12:19→21:29)
[2021-11-21 16:00] VITALS: BP 103/53
[2021-11-21] MEDS: ENOXAPARIN 30MG/0.3ML SYR SUBCUT SCH (16:30)
[2021-11-21 20:00] VITALS: BP 96/57
[2021-11-22] VITALS: BP 106/53
[2021-11-22] MEDS: IPRATROPIUM/ALBUTEROL 0.5-3(2.5)MG/3ML NEB HHN SCH ×6 (02:27→23:19)
[2021-11-22] MEDS: ACETYLCYSTEINE 100MG/ML 10% VIAL 4ML INH SCH ×4 (02:27→16:37)
[2021-11-22 04:00] VITALS: BP 104/69
[2021-11-22] MEDS: SODIUM CHLORIDE 0.9% INJ 3ML FLUSH IVF SCH ×3 (06:43→20:33)
[2021-11-22 07:32] LABS: BASOPHILS % 0.1 % (0.0-2.0); EOSINOPHILS % 1.1 % (0.0-5.0); HEMATOCRIT. 27.9 % (42.0-52.0); LYMPHOCYTES % 18.8 % (20.0-50.0); MEAN CORPUSCULAR HEMOGLOBIN 26.2 pg (28.0-32.0); MEAN CORPUSCULAR VOLUME 81.3 fL (80.0-94.0); MEAN PLATELET VOLUME 6.3 fl (7.4-10.4); MONOCYTES % 10.2 % (2.0-8.0); NEUTROPHILS % 69.8 % (40.0-76.0); PLATELET 612 x1000/uL (130-400); RED BLOOD CELL COUNT 3.43 mill/uL (4.7-6.1); RED CELL DISTRIBUTION WIDTH 15.9 % (11.6-14.6)
[2021-11-22 07:45] LABS: CHLORIDE 98 mEq/L (98-107)
[2021-11-22 08:00] VITALS: BP 108/51
[2021-11-22] MEDS: LEVETIRACETAM 500MG TABLET PO SCH ×2 (08:00→20:33)
[2021-11-22] MEDS: SODIUM CHLORIDE 0.9% 1,000 ML IV SCH ×2 (08:00→17:13)
[2021-11-22 12:00] VITALS: BP 93/66
[2021-11-22] MEDS: CEFEPIME 1,000 MG in DEXTROSE 5% WATER 50 ML IV SCH ×2 (12:48→23:04)
[2021-11-22] MEDS: ENOXAPARIN 30MG/0.3ML SYR SUBCUT SCH (13:43)
[2021-11-22 16:00] VITALS: BP 97/63
[2021-11-22 20:00] VITALS: BP 95/59
[2021-11-22] MEDS: DIPHENHYDRAMINE 50MG/ML VIAL IV PRN (20:33)
[2021-11-23] VITALS: BP 96/56
[2021-11-23] MEDS: DIPHENHYDRAMINE 50MG/ML VIAL IV PRN ×2 (00:07→21:17)
[2021-11-23] MEDS: SODIUM CHLORIDE 0.9% 1,000 ML IV SCH ×2 (04:14→13:15)
[2021-11-23] MEDS: SODIUM CHLORIDE 0.9% INJ 3ML FLUSH IVF SCH ×3 (06:00→21:17)
[2021-11-23 06:49] LABS: CHLORIDE 97 mEq/L (98-107)
[2021-11-23 06:57] LABS: BASOPHILS % 0.2 % (0.0-2.0); EOSINOPHILS % 1.8 % (0.0-5.0); HEMATOCRIT. 27.2 % (42.0-52.0); HEMOGLOBIN. 8.8 g/dL (14.0-18.0); LYMPHOCYTES % 17.3 % (20.0-50.0); MEAN CORPUSCULAR VOLUME 80.3 fL (80.0-94.0); MEAN PLATELET VOLUME 6.7 fl (7.4-10.4); MONOCYTES % 8.3 % (2.0-8.0); NEUTROPHILS % 72.4 % (40.0-76.0); PLATELET 582 x1000/uL (130-400); RED BLOOD CELL COUNT 3.39 mill/uL (4.7-6.1)
[2021-11-23 08:00] VITALS: BP 97/55
[2021-11-23] MEDS: IPRATROPIUM/ALBUTEROL 0.5-3(2.5)MG/3ML NEB HHN SCH ×4 (08:27→20:01)
[2021-11-23] MEDS: LEVETIRACETAM 500MG TABLET PO SCH ×2 (08:42→21:17)
[2021-11-23 12:00] VITALS: BP 92/54
[2021-11-23] MEDS: CEFEPIME 1,000 MG in DEXTROSE 5% WATER 50 ML IV SCH (13:14)
[2021-11-23] MEDS: ENOXAPARIN 30MG/0.3ML SYR SUBCUT SCH (13:16)
[2021-11-23 16:00] VITALS: BP 96/57
[2021-11-23 20:00] VITALS: BP 96/62
[2021-11-24] VITALS: BP 95/55
[2021-11-24] MEDS: IPRATROPIUM/ALBUTEROL 0.5-3(2.5)MG/3ML NEB HHN SCH ×5 (00:14→20:45)
[2021-11-24] MEDS: CEFEPIME 1,000 MG in DEXTROSE 5% WATER 50 ML IV SCH ×2 (00:46→15:41)
[2021-11-24] MEDS: ACETYLCYSTEINE 100MG/ML 10% VIAL 4ML INH SCH ×3 (00:46→10:15)
[2021-11-24] MEDS: SODIUM CHLORIDE 0.9% 1,000 ML IV SCH ×3 (00:47→21:32)
[2021-11-24] MEDS: DIPHENHYDRAMINE 50MG/ML VIAL IV PRN ×2 (03:22→21:53)
[2021-11-24 04:00] VITALS: BP_SYST 87; BP_SYST 92; BP_DIAS 46; BP_DIAS 58
[2021-11-24] MEDS: SODIUM CHLORIDE 0.9% INJ 3ML FLUSH IVF SCH ×2 (05:08→14:02)
[2021-11-24 08:00] VITALS: BP 92/52
[2021-11-24] MEDS: LEVETIRACETAM 500MG TABLET PO SCH ×2 (08:28→21:31)
[2021-11-24 12:00] VITALS: BP 98/54
[2021-11-24] MEDS: ENOXAPARIN 30MG/0.3ML SYR SUBCUT SCH (14:00)
[2021-11-24 16:00] VITALS: BP 96/57
[2021-11-24] MEDS ORDERED: SULF1TAB48 MT (16:11)
[2021-11-24] MEDS ORDERED: VANCOMYCIN 1.25GM PMX (XELLIA) 250 ML IV NR (16:30)
[2021-11-24] MEDS ORDERED: VANCOMYCIN 1 GM IV NR ×2 (16:32→18:00)
[2021-11-24 20:00] VITALS: BP 104/62
[2021-11-25] VITALS: BP 106/62
[2021-11-25] MEDS: IPRATROPIUM/ALBUTEROL 0.5-3(2.5)MG/3ML NEB HHN SCH ×6 (00:46→21:21)
[2021-11-25] MEDS ORDERED: VANCOMYCIN 1GM PMX (XELLIA) 200 ML IV SCH (02:00)
[2021-11-25] MEDS: SODIUM CHLORIDE 0.9% INJ 3ML FLUSH IVF SCH ×4 (03:01→21:21)
[2021-11-25] MEDS: DIPHENHYDRAMINE 50MG/ML VIAL IV PRN ×3 (03:01→21:21)
[2021-11-25] MEDS: VANCOMYCIN 750 MG in DEXT 5% WATER 250 ML IV SCH ×2 (03:01→11:26)
[2021-11-25 04:00] VITALS: BP 100/58
[2021-11-25] MEDS: SODIUM CHLORIDE 0.9% 1,000 ML IV SCH ×2 (05:31→17:03)
[2021-11-25] MEDS: ACETYLCYSTEINE 100MG/ML 10% VIAL 4ML INH SCH ×2 (06:00→13:25)
[2021-11-25 08:00] VITALS: BP 108/68
[2021-11-25] MEDS: LEVETIRACETAM 500MG TABLET PO SCH ×2 (10:36→21:14)
[2021-11-25 12:06] VITALS: BP 101/66
[2021-11-25] MEDS: ENOXAPARIN 30MG/0.3ML SYR SUBCUT SCH (15:13)
[2021-11-25 16:00] VITALS: BP 84/44
[2021-11-25] MEDS: VANCOMYCIN 750MG PREMIX 150 ML IV SCH (18:24)
[2021-11-25 20:00] VITALS: BP 90/51
[2021-11-26] VITALS: BP 93/44
[2021-11-26] MEDS: IPRATROPIUM/ALBUTEROL 0.5-3(2.5)MG/3ML NEB HHN SCH ×5 (01:36→17:00)
[2021-11-26] MEDS: VANCOMYCIN 750MG PREMIX 150 ML IV SCH ×2 (01:40→09:08)
[2021-11-26] MEDS: SODIUM CHLORIDE 0.9% 1,000 ML IV SCH ×3 (01:40→14:05)
[2021-11-26] MEDS: DIPHENHYDRAMINE 50MG/ML VIAL IV PRN ×3 (01:40→17:34)
[2021-11-26 04:00] VITALS: BP 102/45
[2021-11-26] MEDS: SODIUM CHLORIDE 0.9% INJ 3ML FLUSH IVF SCH ×2 (05:19→14:06)
[2021-11-26 07:59] LABS: CHLORIDE 100 mEq/L (98-107)
[2021-11-26 08:00] VITALS: BP 101/58
[2021-11-26] MEDS: LEVETIRACETAM 500MG TABLET PO SCH (09:08)
[2021-11-26] MEDS ORDERED: LIPASE/PROTEASE/AMYLASE 4,200/14,200/24,600 UNITS CAP DR PO SCH (11:45)
[2021-11-26 12:00] VITALS: BP 104/61
[2021-11-26] MEDS: LIPASE/PROTEASE/AMYLASE 4,200/14,200/24,600 UNITS CAP DR PO SCH ×2 (12:24→17:34)
[2021-11-26] MEDS: ENOXAPARIN 30MG/0.3ML SYR SUBCUT SCH (13:56)
[2021-11-26 16:00] VITALS: BP 110/69
[2021-11-26] MEDS ORDERED: VANCOMYCIN 500MG PREMIX 100 ML IV SCH (20:00)
== END 2021-11-26 19:52 | disposition home or self-care (01) | DRG 720 ==
LOC: ER 16:38 → 5WST 18:23 → ENRESERV 21:22
PROVIDERS: ADMIT Internal Medicine; ATTEND Internal Medicine
DX: A41.02 Sepsis due to Methicillin resistant Staphylococcus aureus (principal); J96.21 Acute and chronic respiratory failure with hypoxia; J15.212 Pneumonia due to Methicillin resistant Staphylococcus aureus; E46 Unspecified protein-calorie malnutrition; E84.9 Cystic fibrosis, unspecified; Z99.81 Dependence on supplemental oxygen; E87.1 Hypo-osmolality and hyponatremia; D64.9 Anemia, unspecified; F15.10 Other stimulant abuse, uncomplicated; Z20.822 Contact with and (suspected) exposure to COVID-19; G40.909 Epilepsy, unspecified, not intractable, without status epilepticus; Z87.820 Personal history of traumatic brain injury; Z91.19 Patient's noncompliance with other medical treatment and regimen; Z68.1 Body mass index [BMI] 19.9 or less, adult; Z71.51 Drug abuse counseling and surveillance of drug abuser
CPT/HCPCS: 36415; 36600; 71045; 80048; 80053; 80202; 80305; 81003; 82375; 82805; 83605; 83880; 84484; 85025; 87070; 87077; 87186; 87426; 93005; 94640; 94644; 94667; 97161; 99291; J0692; J1200; J1650; J2405; J2930; J3260; J3370; J7030; J7060; J7608